=== PATIENT | female | born 1950 | race Caucasian/White ===

== ENCOUNTER 2019-03-27 12:33 | Inpatient (IN) ==
--- NOTE | 2019-03-27 13:37 | Diag Imaging Result Doc PS360 ---
EXAM: CHEST-2 VIEWS INDICATION: volume overload TECHNIQUE: 2 views COMPARISON: 12/27/2018 FINDINGS: There is slight blunting of the left costophrenic angle suggesting a likely trace effusion. The lungs are grossly clear, otherwise. There is no evidence of pneumothorax. There is stable cardiomegaly. Central vasculature is unremarkable. IMPRESSION: Likely trace effusion on the left and stable cardiomegaly. Electronically signed by Elliot Mead 03/27/2019 1:35 PM
[2019-03-27 14:14] LABS: BASO# 0.09 X1000 (0.0-0.2); BASO% 1.4 % (0.0-0.8); EOS# 0.78 X1000 (0.0-0.7); EOS% 12.4 % (0.0-10.0); HEMATOCRIT 35.5 % (37.0-47.0); HEMOGLOBIN 11.3 g/dL (12.0-16.0); LYMPH# 0.93 X1000 (1.2-3.4); LYMPH% 14.8 % (20.5-51.1); MCH 31.4 PG (27-31); MCHC 31.8 g/dL (33-37); MCV 98.6 FL (81-99); MONO% 12.8 % (1.7-9.3); MPV 10.2 FL (7.4-10.4); NEUT# 3.67 X1000 (1.4-6.5); NEUT% 58.6 % (42.2-75.2); PLT 87 X1000 (130-400); RDW 14.7 % (11.5-14.5); WBC 6.27 X1000 (4.8-10.8)
[2019-03-27 14:21] LABS: INR 1.31; PROTIME 16.5 Seconds (11.0-16.0)
--- NOTE | 2019-03-27 14:31 | EKG Report ---
Test Performed on : 03/27/2019 1:55:45 PM Test Reason : Volume overload Blood Pressure : / mmHG Vent. Rate : 088 BPM Atrial Rate : 113 BPM P-R Int : 000 ms QRS Dur : 088 ms QT Int : 380 ms P-R-T Axes : 000 017 002 degrees QTc Int : 459 ms Undetermined rhythm Anterolateral infarct (cited on or before 27-DEC-2018) Abnormal ECG When compared with ECG of 27-DEC-2018 01:11, Current undetermined rhythm precludes rhythm comparison, needs review Confirmed by Oj VALENCIA, Zeeshan Guzman ([id number]) on 03/29/2019 9:24:46 AM
[2019-03-27 14:32] LABS: ALB/GLOB RATIO 1.1; ALBUMIN 3.6 g/dL (3.5-5.0); CALCIUM 9.1 mg/dL (8.8-10.2); MAGNESIUM 1.9 mg/dL (1.5-2.7); TOTAL BILIRUBIN 2.32 mg/dL (0.20-1.00); TOTAL PROTEIN 6.9 g/dL (6.3-8.3)
[2019-03-27] MEDS ORDERED: ULTRAM PO PRN (16:01)
[2019-03-27] MEDS: LASIX IV SCH ×2 (16:45→21:35)
[2019-03-27] MEDS: INSPRA PO SCH (17:09)
--- NOTE | 2019-03-27 18:55 | HISTORY AND PHYSICAL ---
CHIEF COMPLAINT: Shortness of breath and weight gain. HISTORY OF PRESENT ILLNESS: This is a 68-year-old lady who was seen by me 4 days ago at the office. She was diagnosed as having new-onset atrial fibrillation at that time. She has been diagnosed as having cirrhosis with portal hypertension and ascites. She has been seeing Hepatology at [facility]. She denies missing any of her medications. PAST MEDICAL HISTORY: 1. 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 2. Type 2 diabetes mellitus. 3. Hypertension. 4. Hypothyroidism. 5. Psoriasis. 6. Osteoarthritis. 7. Irritable bowel syndrome. 8. Gastroesophageal reflux disease. 9. Diverticulosis. 10. History of vascular headaches. FAMILY HISTORY: Noncontributory. SOCIAL HISTORY: The patient does not smoke tobacco products nor does she drink any alcohol. She denies using any recreational drugs. ALLERGIES: She reports to be allergic to tetracycline, neomycin and codeine, along with latex and iodinated contrast media. MEDICATIONS: Current home medications: 1. Aspirin 81 mg orally once daily. 2. Eplerenone 50 mg orally once daily. 3. Furosemide 80 mg in the morning and 40 mg in the evening. 4. Lactulose 30 mL orally once daily. 5. Levothyroxine 75 mcg orally once daily. 6. Nadolol 40 mg orally once daily. 7. Ranitidine 150 mg orally twice daily. 8. Tramadol 50 mg orally twice daily as needed for arthritis pain. REVIEW OF SYSTEMS: A full 14-point review of systems was obtained that was pretty much the same as already has been explained in the HPI. PHYSICAL EXAMINATION: VITAL SIGNS: Temperature 98 degrees, pulse 88 per minute, respiratory rate 20 per minute, blood pressure 143/77, pulse oximetry 100% on room air. GENERAL: The patient is alert and oriented x3. She is minimally dyspneic but is otherwise not in any acute distress. HEENT: Within normal limits. NECK: Supple, without any thyromegaly. LYMPHATICS: No lymphadenopathy noted in the neck region. CHEST: The chest wall is nontender. CARDIOVASCULAR: First and second heart sounds are audible without any murmurs or gallops. Irregularly irregular rhythm is present. RESPIRATORY: Bilateral lung air entry is moderately decreased, but there are no rales or rhonchi present on auscultation. GASTROINTESTINAL: Abdomen is significantly distended. It is nontender on palpation, and normal bowel sounds are present. No viscera were palpable. NEUROLOGIC: No focal deficits are present. INTEGUMENTARY: Skin has a psoriatic rash under the breasts and on extremities. MUSCULOSKELETAL: No deformities are present. GENITOURINARY: Deferred. LABORATORY DATA: CBC shows WBC count of 6.27, hemoglobin 11.3, hematocrit 35.5, and platelet count of 87,000. I have reviewed her recent labs, and her platelet counts have been in the same region throughout. Comprehensive metabolic panel showed glucose level of 188, BUN 27, creatinine 1.0 and alkaline phosphate 109, with total bilirubin of 2.32. The rest of the comprehensive metabolic panel was nondiagnostic. ProBNP was elevated at 1776. PT was slightly elevated at 16.5 with INR of 1.31. DIAGNOSTIC DATA: Chest x-ray obtained this afternoon showed trace effusion on the left with cardiomegaly. No infiltrates were seen. ECG obtained this afternoon showed atrial fibrillation with a rate of 88 beats per minute. No acute ischemic abnormalities were seen. IMPRESSION: 1. Dyspnea with severe ascites secondary to portal hypertension and liver cirrhosis that is secondary to nonalcoholic steatohepatitis. 2. Thrombocytopenia secondary to cirrhosis 3. New-onset atrial fibrillation. 4. Type 2 diabetes mellitus. 5. Hypertension. 6. Hypothyroidism. PLAN: The patient will be admitted to the medical floor and will be initiated on IV furosemide 60 mg twice daily along with eplerenone 50 mg orally once daily. We will continue with nadolol 40 mg orally once daily along with aspirin 81 mg daily, levothyroxine 75 mcg once daily and lactulose 30 mL orally once daily. She is currently having an echocardiogram done to evaluate cardiac function and structure, and will be followed by Dr. Darrion Fraire from the Cardiology service. I am also going to obtain GI consultation to assist us in treating her severe ascites. We might have to get ultrasound-guided paracentesis in case she does not respond to this management. We will keep strict intake and output, and keep her on healthy-heart diet. Further recommendations will be as per hospital course. cc: Julio C Gutierrez MD [facility] CENTERMarco Antonio
[2019-03-27] MEDS: TEMOVATE 0.05% CREAM TOP SCH (21:35)
[2019-03-27] MEDS: HUMALOG SUBQ SCH (21:35)
[2019-03-28 06:03] LABS: BASO# 0.05 X1000 (0.0-0.2); BASO% 0.9 % (0.0-0.8); EOS# 0.79 X1000 (0.0-0.7); EOS% 14.8 % (0.0-10.0); HEMATOCRIT 33.7 % (37.0-47.0); HEMOGLOBIN 10.5 g/dL (12.0-16.0); LYMPH# 0.78 X1000 (1.2-3.4); LYMPH% 14.6 % (20.5-51.1); MCH 30.2 PG (27-31); MCHC 31.2 g/dL (33-37); MCV 96.8 FL (81-99); MONO# 0.65 X1000 (0.11-0.59); MONO% 12.2 % (1.7-9.3); MPV 10.3 FL (7.4-10.4); NEUT# 3.06 X1000 (1.4-6.5); NEUT% 57.5 % (42.2-75.2); PLT 95 X1000 (130-400); RBC 3.48 XMIL (4.2-5.4); RDW 14.6 % (11.5-14.5); WBC 5.33 X1000 (4.8-10.8)
[2019-03-28 06:19] LABS: CALCIUM 9.6 mg/dL (8.8-10.2); MAGNESIUM 1.9 mg/dL (1.5-2.7); POTASSIUM 3.5 mmol/L (3.5-5.1)
[2019-03-28] MEDS: HUMALOG SUBQ SCH ×4 (06:19→20:06)
[2019-03-28] MEDS: LACTULOSE PO SCH (08:29)
[2019-03-28] MEDS: SYNTHROID PO SCH (08:29)
[2019-03-28] MEDS: INSPRA PO SCH (08:29)
[2019-03-28] MEDS: ASPIRIN PO SCH (08:29)
[2019-03-28] MEDS: LASIX IV SCH ×2 (08:29→16:19)
[2019-03-28] MEDS ORDERED: ALDACTONE PO SCH (09:00)
[2019-03-28] MEDS: TEMOVATE 0.05% CREAM TOP SCH ×2 (11:12→20:06)
[2019-03-28] MEDS: CORGARD PO SCH (11:49)
[2019-03-28] MEDS ORDERED: POTASSIUM CHLORIDE 20% LIQUID PO ONE (12:18)
--- NOTE | 2019-03-28 12:28 | PROGRESS NOTE ---
DATE: 03/28/2019 SUBJECTIVE: The patient says she is feeling a little bit better. She can feel her heart beat. I was under the impression that this was new onset atrial fibrillation but she says she has had this off and on for a little bit longer period of time but apparently she was in a regular rhythm and then went back into atrial fibrillation. She also has a history of portal hypertension with ascites and nonalcoholic hepatosteatosis. She has type 2 diabetes, hypertension, hypothyroidism, psoriasis, osteoarthritis, irritable bowel syndrome. OBJECTIVE: Vital signs: Blood pressure 116/66, respirations 17, pulse 91 and regular. Telemetry station reported 102 heart rate at that time that was irregularly irregular and she has been atrial fibrillation since she has been in the hospital. Temperature 97.6 degrees Fahrenheit. Oxygen saturation is 97% on room air. HEENT: She is normocephalic. EOMS intact. PERRLA. Throat clear. Lungs: Sound clear to auscultation and percussion without rhonchi, rales, or wheezes. Heart: Irregularly irregular without murmurs, gallops, friction rubs. Abdomen: Soft. Active bowel sounds. No organomegaly or tenderness. Does have ascites. Neurological: Intact grossly. LABORATORY DATA: White count is 5330, hemoglobin 10.5, she does have anemia as well, hematocrit 33.7. Electrolytes are essentially stable. Blood sugar 117. Her proBNP was 1800. ASSESSMENT: 1. Nonalcoholic hepatosteatosis with now cirrhosis and ascites. 2. Atrial fibrillation. 3. Morbid obesity. 4. Ascites. PLAN: We will continue care. cc: MD Julio C Cain Jr, MD
--- NOTE | 2019-03-28 14:58 | ECHO REPORT ---
ORDER DATE: 03/27/2019 INDICATION: Volume overload. FINDINGS: 1. The right atrium is likely severely enlarged at 4.9 cm. 2. Moderate tricuspid regurgitation. RV systolic pressure of 59 suggesting pulmonary hypertension. 3. Normal RV size and systolic function. 4. Mild pulmonic insufficiency. 5. Severe left atrial enlargement with a volume index of 56. 6. No mitral valve prolapse. Mild mitral regurgitation. Likely moderate mitral stenosis with a peak gradient of 17, mean of 5.6. Again, mild mitral regurgitation. 7. Normal LV size, end-diastolic dimension of 5.3 cm. Normal wall thicknesses with a posterior and interventricular septal wall thickness of 1.0 and 1.1 cm respectively. Normal LV systolic function with a calculated ejection fraction of 64%. 8. The aortic valve is sclerotic. It does not appear to be stenotic based on 2-dimensional imaging, although there does appear to be a peak and mean gradient of 19 and 10. No insufficiency. 9. The aorta appears normal in visualized segments. 10. No pericardial effusion is identified. 11. Patient appears to be in atrial fibrillation. cc: MD Julio C Padilla MD
--- NOTE | 2019-03-28 15:39 | CARDIOLOGY PROGRESS NOTE ---
DATE: 03/28/2019 SUBJECTIVE: Ms. Reilly reports continued edema, but she has had adequate urine output. She otherwise has no complaints. PHYSICAL EXAMINATION: vital signs: She is afebrile. Heart rate 91, blood pressure 116/66. Her weight is 282 pounds with an admit weight of 286 pounds. Her I's and O's are -1400 mL for the course of the hospitalization. General: She is in no acute distress. Cardiovascular: She sounds to be in a regular rate and rhythm. She has no murmur. She has no S3. She has no lower extremity edema. Chest: Clear to auscultation bilaterally. She has no increased work of breathing. Abdomen: Soft, nontender. PERTINENT DATA: Sodium 142, potassium 3.5. Her BUN is 26, creatinine is 1, which is stable. Her proBNP is 1800, which is essentially unchanged from yesterday. ASSESSMENT: Ms. Reilly is a 68-year-old female who presented with complaints of edema to the office and a roughly 50-pound weight gain. PLAN: We will continue with diuretics. She is on eplerenone and seems to be doing well. I have increased her diuretic dose slightly to 80 IV b.i.d., checking laboratories in the morning. Her potassium is 3.5. I will give her 40 mEq of p.o. potassium today. cc: MD Julio C Padilla MD
--- NOTE | 2019-03-28 16:37 | GASTROENTEROLOGY CONSULTATION ---
DATE: 03/28/2019 HISTORY: Ms. Reilly was admitted to the hospital with complaints of abdominal distention and shortness of breath. She sees Dr. Bain and he has been following her for her liver disease as well as other GI issues. In fact, she had EGD and colonoscopy about a year ago. I do not have the report and not sure whether she had varices or not. She has carries a diagnosis of nonalcoholic steatohepatitis as well as cirrhosis secondary to fatty liver disease and has cirrhosis with portal hypertension now. She follows a csr at [facility]. She is also seeing Dr. Ayers for hematological issues and has seen . [*]surgeon at [facility] for cholelithiasis. Apparently, patient was seen by Dr. Fraire for shortness of breath and during evaluation she was found to have severe anasarca and ascites. She was admitted to hospital for further evaluation and treatment. The patient tells me that she has been following her dietary restriction of 2 g salt diet and has been taking her medication, but apparently she did not have good diuresis with the current medication and she started to gain weight. As her weight when up she started having issues with shortness of breath. However, she denied any fever or chills. She has occasional headache, but she carries a diagnosis of vascular headaches. She denies any cough, sputum, hemoptysis. She has had some shortness of breath on exertion as well as shortness of breath on exertion and irregular heartbeat. She carries a diagnosis of chronic atrial fibrillation. She reports no chest pain. She denies any dysuria or hematuria. She has had a good bit of urinary output since she was admitted to hospital and was started on IV Lasix. She has not had any abdominal pain, abdominal cramps. She denies any melena or bright red blood per rectum. She takes lactulose and has had good results. PAST MEDICAL HISTORY: 1. Decompensated cirrhosis secondary to nonalcoholic fatty liver disease and cirrhosis with portal hypertension. 2. Ascites and anasarca secondary to portal hypertension secondary to cirrhosis of the liver. 3. Gastroesophageal reflux disease, stable. 4. Diabetes. 5. Hypertension. 6. Chronic atrial fibrillation. 7. History of hypothyroidism. 8. Psoriasis. PAST SURGICAL HISTORY: 1. Hysterectomy. 2. Appendectomy. 3. Tonsillectomy. MEDICATIONS: Prior to hospitalization, she was on aspirin, Ultram, Corgard, Synthroid, Generlac, Lasix, Pepcid, Eplerenone. ALLERGIES: Claims to be allergic to codeine, latex, tetracycline and IV dye. SOCIAL HISTORY: She is single, retired from [employer]. Does not smoke now. Does not drink. Used to drink socially. Does not use illicit drugs. FAMILY HISTORY: Noncontributory. REVIEW OF SYSTEMS: As per HPI as above. PHYSICAL EXAMINATION: General: On examination very pleasant white female, overweight. She is lying in bed. She is conscious, alert, appears in no distress. Vital Signs: Temperature 97.6 degrees, pulse 91 per minute, breathing 17, blood pressure was 116/66. HEENT: Head is atraumatic normocephalic. Eyes: Conjunctiva is normal. Sclerae anicteric. Nares are patent. No discharge. Mouth was moist. Throat is normal. Neck: Supple, no lymphadenopathy or thyromegaly. Chest: Bilaterally symmetrical. It is moving with respirations. Breath sounds audible bilaterally. No rhonchi or crepitations could be heard. Heart: Sounds audible. No murmur could be appreciated. Abdomen: Obese. She has got subcutaneous edema mostly involving the left side of the abdomen. However, no mass or visceromegaly would be appreciated. Could not appreciate ascites because of her obesity. Abdomen otherwise soft, nontender. Bowel sounds audible. Extremities: 1+ pitting edema noted bilaterally in lower extremities. 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 No sensory or motor deficit. No asterixis or flapping tremor noted. LABORATORIES: Reviewed which showed WBC of is 5.33, hemoglobin 10.5, hematocrit 33.7, MCV 96.8, platelets were 95. PT yesterday was 16.5, INR 1.31. Sodium 142, potassium 3.5, chloride 100, bicarb 31, BUN is 26, creatinine 1.0, glucose 117, total bilirubin 2.32, AST 25, ALT 13, alkaline phosphatase 109. IMPRESSION/PLAN: This is a 68-year-old white female who has presented with abdominal distention and generalized edema associated with some shortness of breath. She has retained fluid and gained weight despite being on diuretics and following with 2 g salt diet. However, she has responded very well to diuresis since she was started on IV Lasix. She has decompensated cirrhosis with portal hypertension. Her meld score at admission was 13. At this point, there is no not much to add from GI point of view. I would continue her on diuretics, continue 2 g salt diet and continue lactulose and will follow depending on her diuresis. I think she may do fine without paracentesis. I do not think she needs a diagnostic paracentesis at this point. Therapeutic paracentesis will be reserved if she does not respond to diuretics, and continues to have respiratory issues. She does not seem to have evidence of encephalopathy now. I will continue to follow up till Saturday when Dr. Bain will pick her up for further continuation of care as he knows her very well. cc: MD Julio C Meyer MD
[2019-03-28] MEDS ORDERED: LASIX IV SCH (21:00)
[2019-03-29 07:01] LABS: AGAP 13; BUN 26 mg/dL (8-22); CALCIUM 9.4 mg/dL (8.8-10.2); CHLORIDE 101 mmol/L (98-107); COSMO 290; CREATININE 0.9 mg/dL (0.5-0.9); ESTIMATED GFR > 60; GLUCOSE 129 mg/dL (70-104); MAGNESIUM 1.7 mg/dL (1.5-2.7); POTASSIUM 4.2 mmol/L (3.5-5.1); SODIUM 142 mmol/L (136-145); TCO2 28 mmol/L (25-35)
[2019-03-29] MEDS: HUMALOG SUBQ SCH ×4 (07:26→20:38)
[2019-03-29] MEDS: LASIX IV SCH ×3 (07:28→17:07)
[2019-03-29] MEDS: SYNTHROID PO SCH ×2 (07:28→08:19)
[2019-03-29] MEDS: ASPIRIN PO SCH ×2 (07:28→08:17)
[2019-03-29] MEDS: CORGARD PO SCH ×2 (07:28→08:17)
[2019-03-29] MEDS: LACTULOSE PO SCH ×2 (07:29→08:18)
[2019-03-29] MEDS: INSPRA PO SCH (08:18)
[2019-03-29] MEDS ORDERED: PATIENT'S OWN MED PO SCH (09:00)
[2019-03-29] MEDS: TEMOVATE 0.05% CREAM TOP SCH ×2 (09:14→20:39)
[2019-03-29] MEDS ORDERED: MAGNESIUM SULFATE 2 GM/S.W.I. 2 GM/50 ML IVPB IV ONE (10:53)
--- NOTE | 2019-03-29 12:56 | PROGRESS NOTE ---
DATE: 03/29/2019 SUBJECTIVE: The patient comes in with ascites and nonalcoholic hepatic steatosis with cirrhosis. She is feeling a little bit better. We will try to diurese off the ascites. At this time, GI did not think she warranted a paracentesis but would try diuretics first. OBJECTIVE: Blood pressure is 128/66, respirations 17, pulse 78, temperature 97.9 degrees Fahrenheit. HEENT: She is normocephalic. EOMs intact. PERRLA. Throat clear. Lungs: Clear to auscultation and percussion without rhonchi, rales, or wheezes. Heart: A little irregular without murmurs, gallops, or friction rubs. Abdomen: Soft. The patient is morbidly obese. Has some ascites. Neurological Examination: Intact grossly. No signs of encephalopathy. ASSESSMENT: 1. Nonalcoholic hepatic steatosis with cirrhosis and ascites. 2. Atrial fibrillation. 3. Morbid obesity. PLAN: Continue to try to diurese. cc: MD Julio C Cain Jr, MD
--- NOTE | 2019-03-29 13:58 | GASTROENTEROLOGY PROGRESS NOTE ---
DATE: 03/29/2019 SUBJECTIVE: The patient was awake and alert. No acute distress. She was sitting up in a chair. She has had good diuresis from increased diuretics. Since admission, she has lost 10 pounds after diuretics. She denies shortness of breath today. OBJECTIVE: Vital Signs: Temperature 98.0 degrees, pulse 88, respirations 20, blood pressure 143/77. General: The patient is awake and alert. No acute distress. Abdomen: Soft. Positive bowel sounds. Obese. Laboratory: Hematology: WBC 5.33, hemoglobin 10.5, hematocrit 33.7, MCV 96.8. Chemistry: Sodium 142, potassium 4.2, chloride 101, CO2 of 28, BUN 26, creatinine 0.9, glucose 129. ASSESSMENT AND PLAN: 1. Decompensated cirrhosis related to nonalcoholic fatty liver disease. Continue diuretics. 2. Atrial fibrillation. Continue current medications. 3. Ascites has improved after diuretics. PLAN: Continue current management. Continue diuretics. Patient has had a 10 pound weight loss since admission after increased diuretics. The patient normally follows with Dr. Bain. We will notify him of her admission tomorrow. Further plans to be made according to her progress. I have discussed this case with Dr. Calderon. Dictated by HENNY Cabrera for Santiago Calderon MD cc: HENNY Dorsey MD Adnan A. Seljuki, MD
--- NOTE | 2019-03-29 15:01 | CARDIOLOGY PROGRESS NOTE ---
DATE: 03/29/2019 SUBJECTIVE: Ms. Reilly feels a little bit better today. She still feels quite edematous. She has no other complaints though presently. PHYSICAL EXAMINATION: Afebrile, heart rate of 78, blood pressure 128/66. Her weight is 276 pounds which is down from 286 on presentation. Her Is and Os are negative a total of 3.1 L over the course of the hospitalization. She was only negative a total of 1 L yesterday though. Generally, she is in no acute distress. Cardiovascular: She sounds to be in an irregularly irregular rhythm, consistent with atrial fibrillation. She has no murmurs. She has no S3. She has marked bilateral lower extremity edema. Her chest exam is clear bilaterally. She has no increased work of breathing. Her abdomen is soft, nontender. PERTINENT DATA: Her sodium is 142, potassium is 4.2, BUN 26, creatinine 0.9. Her magnesium level is 1.7. ASSESSMENT: Ms. Reilly is a 68-year-old female with cirrhosis who presented markedly volume overloaded. PLAN: I will increase her diuretics to t.i.d. with the first dose of Lasix at 5 a.m. per her request. We will recheck laboratories in the morning. I will replete her magnesium today. cc: MD Julio C Padilla MD
[2019-03-30] MEDS: LASIX IV SCH ×3 (04:40→17:07)
[2019-03-30] MEDS: HUMALOG SUBQ SCH ×5 (06:16→21:02)
[2019-03-30 07:16] LABS: CALCIUM 9.3 mg/dL (8.8-10.2); POTASSIUM 3.7 mmol/L (3.5-5.1)
--- NOTE | 2019-03-30 08:20 | PROGRESS NOTE ---
DATE: 03/30/2019 SUBJECTIVE: Patient denies having any acute complaints this morning and feels well. OBJECTIVE: Vital Signs: Temperature 97.8 degrees, pulse 87 per minute, respiratory rate 17 per minute, blood pressure 131/51, pulse oximetry 97% on room air. General: Patient is alert and oriented x3. She does not appear to be in any acute distress. Cardiovascular System: First and second heart sounds are audible without any murmurs or gallops. Respiratory System: No respiratory distress noted. Bilateral lung air entry is moderately decreased, but there are no rales or rhonchi present on auscultation. Gastrointestinal: Patient is obese. Abdomen: Slightly distended secondary to ascites although it appears to be much softer and improved as compared to 2 days ago. It is nontender on palpation and normal bowel sounds are present. DIAGNOSTIC DATA: Basic metabolic panel done this morning is nondiagnostic. BUN was found to be 24 and creatinine 1.0. Glucose levels were found to be 142. She has lost 12 pounds since admission with previous 24 hour negative balance of 1032 mL. IMPRESSION: 1. Severe ascites secondary to portal hypertension and liver cirrhosis secondary to nonalcoholic steatohepatitis. 2. Thrombocytopenia secondary to cirrhosis. 3. Type 2 diabetes mellitus. 4. New onset atrial fibrillation with controlled ventricular response. 5. Hypertension. 6. Hypothyroidism. PLAN: The patient will continue to receive IV furosemide, and although she was put on eplerenone 50 mg a day, but that is not available at the hospital. Therefore, I am going to switch her to spironolactone 100 mg orally once daily. She will continue with the rest of the supportive care. She is currently followed by Dr. Darrion Fraire from the cardiology service, and from Gastroenterology as well. Dr. Calderon was on-call, and he saw the patient over the weekend, but Dr. Bain will see her today since he has done some workup on her in the past. She can probably be discharged in the 1-2 days if continues to improve. cc: Julio C Gutierrez MD [facility] SYSTEMMarco Antonio
[2019-03-30] MEDS: ALDACTONE PO SCH (10:03)
[2019-03-30] MEDS: TEMOVATE 0.05% CREAM TOP SCH ×2 (10:04→21:02)
[2019-03-30] MEDS: CORGARD PO SCH (10:04)
[2019-03-30] MEDS: SYNTHROID PO SCH (10:04)
[2019-03-30] MEDS: LACTULOSE PO SCH (10:04)
[2019-03-30] MEDS: ASPIRIN PO SCH (10:04)
[2019-03-30] MEDS: PROTONIX IV SCH (11:52)
[2019-03-30] MEDS: CENTRUM SILVER PO SCH (11:53)
[2019-03-30] MEDS: SODIUM CHLORIDE 0.9% INJ SCH (11:53)
--- NOTE | 2019-03-30 12:55 | GASTROENTEROLOGY PROGRESS NOTE ---
DATE: 03/30/2019 ATTENDING PHYSICIAN: Dr. Gutierrez. SUBJECTIVE: Patient is resting in the chair. She had some nosebleed today. She was able to eat her meal well. She had her last bowel movement yesterday. She denied any vomiting blood or passing blood in the stools. She denies any fevers, rigors, or chills. OBJECTIVE: Vital Signs: Temperature 97.8 degrees, pulse rate of 77, respiratory rate of 19, blood pressure 140/76, saturating 94 percent on room air. Body weight of 274 pounds and 3.2 ounces. BMI of 47.8 kg/m2. General Appearance: The patient is morbidly obese. Lying in bed, in no acute distress. HEENT: Positive pallor. Mild icterus. Pupils equal, reactive to light. Neck: Supple. Abdomen: Morbidly obese. Positive anasarca. No guarding or rebound. Extremities: Bilateral lower extremity edema noted. Neurological: She is alert, awake, oriented x3. LABS: Her last labs from today, sodium 141, potassium 3.7, chloride 99, bicarb 29, anion gap 13, BUN of 24, creatinine 1, glucose of 132, calcium 9.3. Total bilirubin is 2.32, AST 25, ALT 13, alkaline phosphatase 109, total protein is 6.9, albumin of 3.6. Her hemoglobin and hematocrit on 03/28/2019 were 10.5 and 33.7, white count of 5.3, platelet count of 95,000. IMPRESSION AND PLAN: 1. Liver cirrhosis secondary to nonalcoholic steatohepatitis complicated with portal hypertension, ascites, anasarca. 2. Thrombocytopenia. 3. Type 2 diabetes. 4. Atrial fibrillation, being followed by Dr. Darrion Fraire. 5. Hypertension. 6. Hypothyroidism. 7. Morbid obesity. 8. Anemia. 9. Elevated liver enzymes and mild jaundice. 10. Coagulopathy with INR of 1.3. RECOMMENDATIONS: 1. We will continue the patient on IV diuretics. She will continue on spironolactone 100 mg once daily. She will continue a low-sodium diet, less than 2 g per 24 hours. The patient was strongly encouraged to restrict her fluids, keep fluids less than 1.5 L in 24 hours. The patient was counseled to lose weight. She is currently being followed by Dr. Darrion Fraire from cardiology for management of atrial fibrillation. We will continue to watch her blood counts, platelet counts, and her liver enzymes. She will continue on nadolol 40 mg once daily as she had a prior history of esophageal varices. She had EGD and colonoscopy done by Dr. Bain more than a year ago and she had esophageal stricture at that time but did not show esophageal varices at that time. She will continue on Synthroid for her hypothyroidism. We will keep her on lactulose once daily. Yesterday, she had 3 bowel movements while being on lactulose. We need to watch her BUN and creatinine closely as she has been on high doses of Lasix. She also has a history of congestive heart failure in the past as well. She follows with [facility]. We will continue to follow her during the hospital course. She will follow up with Dr. Bain in 1 week after discharge. She will follow with the [facility] [place] as scheduled. 2. I will start her on a multivitamin once daily. She will continue on sliding scale insulin for diabetes control. 3. The above plans were discussed with the patient and all questions were answered. Please call us with any further questions. cc: MD Julio C Ba MD [facility]
[2019-03-30] MEDS ORDERED: AYR NASAL SPRAY NAS PRN (15:11)
--- NOTE | 2019-03-30 18:05 | CARDIOLOGY PROGRESS NOTE ---
DATE: 03/30/2019 SUBJECTIVE: Patient has no complaints. She does report some continued issues with lower extremity edema, but this seems to be improving slightly. OBJECTIVE: Vital signs: She is afebrile. Heart rate 77. Her blood pressure is 147/76. Her I's and O's have been a total negative of 4.3 L with a weight drop over that time period from 286 to 274. Generally: She is in no acute distress. Cardiovascular: She is in an irregularly irregular rhythm. She has no murmurs. She has no S3. She has marked bilateral lower extremity edema. They are warm and well perfused. Chest: Exam is clear bilaterally. She has no increased work of breathing. Abdomen: Nontender. PERTINENT DATA: Her sodium is 141, potassium 3.7, BUN 24, creatinine is 1.0 which is roughly stable. ASSESSMENT: Ms. Reilly is a 68-year-old female with cirrhosis and volume overload. PLAN: Laboratories have been ordered for the morning. The patient continues on diuretics in a t.i.d. fashion. She is a currently on oral Lasix 80 mg IV t.i.d. along with 100 mg of spironolactone. Again, she is approximately 4.5 L negative over the admission. cc: MD Julio C Padilla MD
[2019-03-30] MEDS: ELIQUIS PO SCH (21:01)
[2019-03-31] MEDS: LASIX IV SCH ×3 (06:27→17:23)
[2019-03-31] MEDS: HUMALOG SUBQ SCH ×4 (06:33→20:40)
[2019-03-31 06:45] LABS: CALCIUM 9.6 mg/dL (8.8-10.2); MAGNESIUM 1.9 mg/dL (1.5-2.7); POTASSIUM 3.9 mmol/L (3.5-5.1)
[2019-03-31] MEDS: SYNTHROID PO SCH (06:45)
--- NOTE | 2019-03-31 07:23 | EKG Report ---
Test Performed on : 03/31/2019 06:44:36 AM Test Reason : afib Blood Pressure : / mmHG Vent. Rate : 075 BPM Atrial Rate : 066 BPM P-R Int : 000 ms QRS Dur : 088 ms QT Int : 412 ms P-R-T Axes : 000 005 001 degrees QTc Int : 460 ms Atrial fibrillation. Abnormal ECG When compared with ECG of 27-MAR-2019 13:55, Previous ECG has undetermined rhythm, needs review Confirmed by Temo Rivera MD ([id number]) on 04/01/2019 12:14:48 PM
[2019-03-31] MEDS: CENTRUM SILVER PO SCH (09:22)
[2019-03-31] MEDS: CORGARD PO SCH (09:22)
[2019-03-31] MEDS: ALDACTONE PO SCH (09:22)
[2019-03-31] MEDS: ELIQUIS PO SCH (09:22)
[2019-03-31] MEDS: LACTULOSE PO SCH (09:23)
[2019-03-31] MEDS: TEMOVATE 0.05% CREAM TOP SCH ×2 (09:23→20:40)
[2019-03-31] MEDS: PROTONIX IV SCH (11:43)
[2019-03-31] MEDS: SODIUM CHLORIDE 0.9% INJ SCH (11:43)
--- NOTE | 2019-03-31 13:02 | PROGRESS NOTE ---
DATE: 03/31/2019 SUBJECTIVE: Patient denies having any acute complaints this morning and feels better. She states that her breathing is getting better. OBJECTIVE: Vital Signs: Temperature 97.7 degrees, pulse 87 per minute, respiratory rate 17 per minute, blood pressure 151/72, pulse oximetry 96% on room air. General: Patient is alert and oriented x3. She does not appear to be in any acute distress. Cardiovascular System: First and second heart sounds are audible with irregularly irregular rhythm present. Respiratory System: Bilateral lung air entry is moderately decreased without any rales or rhonchi present on auscultation. Gastrointestinal System: Patient is morbidly obese. Abdomen is slightly distended but it is soft and nontender on palpation. Normal bowel sounds are present. Diagnostic Data: Basic metabolic panel done this morning is nondiagnostic. Magnesium levels were also found to be normal at 1.9. IMPRESSION: 1. Severe ascites causing her to have dyspnea. This is secondary to portal hypertension and liver cirrhosis secondary to nonalcoholic steatohepatitis. 2. Thrombocytopenia secondary to cirrhosis. 3. Type 2 diabetes mellitus. 4. New onset atrial fibrillation with controlled ventricular response. 5. Hypertension. 6. Hypothyroidism. PLAN: The patient will continue to receive IV furosemide, along with the spironolactone and fluid restriction. She is currently being followed by cardiology and gastroenterology. She probably will stay here until she improves further. She has lost at least 5.5 L of fluid since admission and has dropped 14 pounds of weight on the scale. cc: Julio C Gutierrez MD [facility]TDD
--- NOTE | 2019-03-31 13:29 | CARDIOLOGY PROGRESS NOTE ---
DATE: 03/31/2019 SUBJECTIVE: The patient reports she is doing well today. She has no present complaints. She reports good diuresis in the interim. OBJECTIVE: Vital Signs: She is afebrile, heart rate 72, blood pressure 129/70. Her weight continues to drop. Current weight 272. Presenting weight 286. I's and O's: She is cumulatively negative 5.7 L. General: No acute distress. Cardiovascular: She is in a regular rate and rhythm. She has no murmurs. She has no S3. Extremities: She has marked bilateral lower extremity edema. Chest: Sounds clear bilaterally. She has no increased work of breathing. Abdomen: Soft, nontender. PERTINENT DATA: BUN and creatinine are 27 and 1.0, with a magnesium level of 1.9. Those are relatively stable. Her proBNP is 1498. ASSESSMENT: Ms. Reilly is a 68-year-old female with cirrhosis, who presented markedly volume overloaded. PLAN: I will try giving her a one-time dose of 2.5 mg of metolazone before her p.m. dose of Lasix today. She had a urine output of 3.9 L yesterday, with a net -2.5. We will recheck laboratories in the morning. cc: MD Julio C Padilla MD
--- NOTE | 2019-03-31 14:33 | GASTROENTEROLOGY PROGRESS NOTE ---
DATE: 03/31/2019 SUBJECTIVE: Ms. Reilly is a 68-year-old female, sitting in the recliner. The patient did complain that she had some sinus problems and sometimes she has a nose bleed, but today she mentioned that she had some blood in her mouth, which she is not sure whether it is coming from her nose or is coming out from the stomach. She did have 1 bowel movement today. The patient is currently on a heart healthy diet, and is able to tolerate her diet well. Patient does have some lower extremity edema for which she is receiving Lasix. OBJECTIVE: Vital Signs: Temperature 97.7 degrees, pulse 72, respirations 18, blood pressure 129/70, oxygen saturation 99% on room air. Weight: The patient's weight is 217 pounds. BMI is 47.5 kg/m sq. General: The patient is morbidly obese. Alert and oriented x3 and in no acute distress. HEENT: Pale conjunctivae. No icterus. PERRL. Neck: Supple. Lungs: Clear to auscultation. Cardiovascular: Regular rate and rhythm. Abdomen: Morbidly obese. Hypoactive bowel sounds heard in all 4 quadrants. Extremities: No clubbing, no cynosis, Edema in the lower extremities. Neurologic: Alert, oriented x3. LABS: WBCs of 5.33, RBCs 3.48, hemoglobin is 10.5, hematocrit is 33.7, platelet count is 95,000. Sodium 140, potassium 3.9, chloride 97, carbon dioxide 29, anion gap 14, BUN 27, creatinine 1. Glucose is 128, calcium 9.6, magnesium 1.9. IMPRESSION AND PLAN: Liver cirrhosis Ascites Type II diabetes Atrial fibrillation Anemia Elevated LFT's PLAN: Ms. Reilly is a 68-year-old female with a history liver cirrhosis. The patient is currently on Lasix 80 mg 3 times for her edema. She is on Protonix 40 mg intravenously daily. The patient is receiving lactulose 30 mL PO. The patient's hemoglobin and hematocrit today are 10.5 and 33.7. It has started to trend downwards. The patient did mention about some blood in her mouth, but not sure whether it is coming from the nose or the stomach. We plan to do an EGD tomorrow to rule out the cause of the bleeding. We will discuss the risks, benefits, and alternatives of the procedure to the patient. Further plan of care will be based on the EGD findings. This plan was discussed with Dr. Gallo. Please call us with any further questions. Dictated by HENNY Pérez for Owen Gallo MD cc: Julio C Gutierrez MD [facility]
[2019-03-31] MEDS ORDERED: ZAROXOLYN PO ONE (16:30)
[2019-04-01] MEDS: LASIX IV SCH ×3 (04:15→16:53)
[2019-04-01] MEDS: HUMALOG SUBQ SCH ×4 (06:00→20:26)
[2019-04-01 07:25] LABS: ALBUMIN 3.9 g/dL (3.5-5.0); CREATININE 1.1 mg/dL (0.5-0.9); MAGNESIUM 1.9 mg/dL (1.5-2.7); POTASSIUM 3.7 mmol/L (3.5-5.1); TOTAL BILIRUBIN 2.68 mg/dL (0.20-1.00); TOTAL PROTEIN 7.8 g/dL (6.3-8.3)
[2019-04-01] MEDS ORDERED: FENTANYL ONE (07:52)
[2019-04-01] MEDS ORDERED: DIPRIVAN 1% ONE (07:52)
--- NOTE | 2019-04-01 07:57 | PROGRESS NOTE ---
DATE: 04/01/2019 SUBJECTIVE: Patient feels good this morning and states that her orthopnea is slowly and gradually getting better. She also states that her leg swelling is improving. She did report an episode of blood in the back of her throat, but that has now cleared. OBJECTIVE: Vital Signs: Temperature 97.7 degrees, pulse 77 per minute, respiratory rate 15 per minute, blood pressure 125/49, pulse oximetry 97% on room air. General: Patient is alert and oriented x3. She does not appear to be in any acute distress. Cardiovascular System: First and second heart sounds are audible without any murmurs or gallops. Respiratory System: Bilateral lung air entry is moderately decreased but there are no rales or rhonchi present on auscultation. Gastrointestinal system: Abdomen is slightly distended. It is kind of firm on palpation, but no viscera are palpable and normal bowel sounds are present. LABORATORY DATA: From this morning are pending at the time of this dictation. IMPRESSION: 1. Dyspnea and orthopnea secondary to severe ascites that is secondary to cirrhosis of the liver secondary to nonalcoholic steatohepatitis. 2. Thrombocytopenia secondary to cirrhosis. 3. Upper gastrointestinal bleed. 4. Type 2 diabetes mellitus. 5. New onset atrial fibrillation. 6. Hypertension. 7. Hypothyroidism. PLAN: The patient will continue to receive IV diuretics and is currently being scheduled for having upper GI endoscopy to be done to investigate her upper GI bleed. She will continue with lactulose and spironolactone along with nadolol. She will also continue to receive lispro insulin as per sliding scale to control her glucose levels. Apixaban has been held because of the bleeding episode. Currently, she is being followed by Cardiology and Gastroenterology. cc: Julio C Gutierrez MD
--- NOTE | 2019-04-01 08:58 | ENDOSCOPY OPERATIVE NOTE ---
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 History of cirrhosis. No history of variceal bleed.. PROCEDURE PERFORMED: EGD, diagnostic MEDICATIONS: Per Anesthesia ESTIMATED BLOOD LOSS: None CONSENT: The patient understands the risks and benefits of the procedure and understands that these r isks include, but are not limited to: sedation, allergic reaction, infection, perforation and/or bleeding. Alternative means of evaluation and treatment include, among others: physical exam, x-rays, and/or surgical intervention. The patient elects to proceed with this endoscopic procedure. DESCRIPTION OF PROCEDURE: During pre-op preparation period all mechanical and medical equipment was c hecked for proper function. Hand hygiene and appropriate measures for infection prevention was taken. After the risks, benefits and alternatives of the procedure were thoroughly explained, Informed consent was verified, confirmed and timeout was successfully executed by the treatment team. The patient was anesthetized with topical anesthesia and the [id number] ([id number]) endoscope was introduced through the mouth and advanced to the second portion of the duoden um. Retroflexion was performed in the stomach and revealed no abnormalities. The gastroscope was then slowly withdraw n and removed. The patient's toleration of the procedure was excellent. ESOPHAGUS: The mucosa of the esophagus appeared normal. STOMACH: Mild portal hypertensive gastropathy was found. DUODENUM: The duodenum was normal. ADVERSE EVENTS: There were no complications. IMPRESSIONS: 1. The mucosa of the esophagus appeared normal 2. Portal hypertensive gastropathy was found 3. The duodenum was normal 4. No evidence of UGIB. Bleed was oropharyngeal RECOMMENDATIONS: Resume cardiac diet Avoid blood thinners in setting of thrombocytopenia and cirrhosis REPEAT EXAM: for EGD. Owne Gallo MD eSigned: Owen Gallo MD 04/01/2019 8:57 AM CC: CPT CODES: 79489 Upper gastrointestinal endoscopy including esophagus, stomach, and either the du odenum and/or jejunum as appropriate; diagnostic, with or without collection of specimen(s) by brushing or washing (separate procedure) ICD CODES: 537.89 Other specified disorders of stomach and duodenum 572.3 Portal hypertension The ICD and CPT codes recommended by this software are interpretations from the data that the [facility] staff has captured with the software. The verification of the translation of this report to the ICD and CPT co zach and modifiers is the sole responsibility of the health care institution and practicing physician where this report was generated. [employer] will not be held responsible for the validity of the ICD and CPT codes i ncluded on this report. [facility] assumes no liability for data contained or not contained herein. CPT is a registered tra demark of the [employer]. PATIENT NAME: Alondra Reilly MR#: [id number]
[2019-04-01 09:56] LABS: BASO# 0.03 X1000 (0.0-0.2); BASO% 0.4 % (0.0-0.8); EOS# 0.82 X1000 (0.0-0.7); EOS% 12.2 % (0.0-10.0); HEMATOCRIT 36.7 % (37.0-47.0); HEMOGLOBIN 11.5 g/dL (12.0-16.0); LYMPH# 0.81 X1000 (1.2-3.4); MCHC 31.3 g/dL (33-37); MCV 95.8 FL (81-99); MONO# 0.64 X1000 (0.11-0.59); MONO% 9.5 % (1.7-9.3); MPV 10.7 FL (7.4-10.4); NEUT# 4.44 X1000 (1.4-6.5); NEUT% 65.9 % (42.2-75.2); PLT 112 X1000 (130-400); RBC 3.83 XMIL (4.2-5.4); RDW 14.7 % (11.5-14.5); WBC 6.74 X1000 (4.8-10.8)
[2019-04-01] MEDS: ALDACTONE PO SCH (10:08)
[2019-04-01] MEDS: CENTRUM SILVER PO SCH (10:08)
[2019-04-01] MEDS: CORGARD PO SCH (10:08)
[2019-04-01] MEDS: SYNTHROID PO SCH (10:08)
[2019-04-01] MEDS: LACTULOSE PO SCH (10:08)
[2019-04-01] MEDS: TEMOVATE 0.05% CREAM TOP SCH ×2 (10:09→20:27)
[2019-04-01] MEDS ORDERED: ZAROXOLYN PO ONE (10:30)
[2019-04-01] MEDS: PROTONIX IV SCH (11:19)
--- NOTE | 2019-04-01 12:00 | CARDIOLOGY PROGRESS NOTE ---
DATE: 04/01/2019 SUBJECTIVE: Ms. Reilly underwent her EGD today. She has no complaints now. She has continued lower extremity edema that seems improved. OBJECTIVE: Vital Signs: On physical exam, she is afebrile. Heart rate is 72, blood pressure 139/78. Input and output continued to decline. Accumulative she is -8 liters. Her weight so far is down on standing scales from 286 on presentation to 260. General: No acute distress. Cardiovascular: She is in an irregularly irregular rhythm. She has no murmurs. She has no S3. She has 2+ bilateral lower extremity edema. Chest: Clear bilaterally. No increased work of breathing. Abdomen: Soft and nontender. PERTINENT DATA: Sodium 139, potassium 3.7, BUN 29, creatinine is 1.1, T-bilirubin 2.7, and her proBNP is 1188 which is down from 1498 yesterday. Magnesium level 1.9. ASSESSMENT: Ms. Reilly is a 68-year-old female with cirrhosis. PLAN: Her EGD procedure demonstrated portal hypertensive gastropathy. Duodenum was normal. Esophagus appeared normal, no obvious upper GI bleed findings. Recommendations per GI were to avoid blood thinners in the setting of portal hypertension and thrombocytopenia. We will try to continue to achieve adequate rate control and diurese the patient. Presently, she is diuresing. We are giving her 1 more dose of metolazone today. Labs ordered for the morning. cc: MD Julio C Padilla MD
[2019-04-01] MEDS: ELIQUIS PO SCH (21:12)
[2019-04-02] MEDS: LASIX IV SCH ×3 (05:43→17:50)
[2019-04-02] MEDS: SYNTHROID PO SCH ×2 (05:44→08:56)
[2019-04-02 06:12] LABS: BASO# 0.06 X1000 (0.0-0.2); BASO% 0.9 % (0.0-0.8); EOS# 0.74 X1000 (0.0-0.7); EOS% 10.5 % (0.0-10.0); HEMATOCRIT 36.8 % (37.0-47.0); HEMOGLOBIN 11.5 g/dL (12.0-16.0); LYMPH# 0.88 X1000 (1.2-3.4); LYMPH% 12.5 % (20.5-51.1); MCH 29.8 PG (27-31); MCHC 31.3 g/dL (33-37); MCV 95.3 FL (81-99); MPV 10.4 FL (7.4-10.4); NEUT# 4.64 X1000 (1.4-6.5); NEUT% 66.1 % (42.2-75.2); PLT 111 X1000 (130-400); RBC 3.86 XMIL (4.2-5.4); RDW 14.6 % (11.5-14.5); WBC 7.02 X1000 (4.8-10.8)
[2019-04-02] MEDS: HUMALOG SUBQ SCH ×4 (06:25→21:16)
[2019-04-02 06:27] LABS: CALCIUM 9.6 mg/dL (8.8-10.2); CREATININE 1.2 mg/dL (0.5-0.9); POTASSIUM 3.8 mmol/L (3.5-5.1)
[2019-04-02] MEDS: MAALOX PLUS LIQUID PO PRN (07:55)
[2019-04-02] MEDS: LACTULOSE PO SCH (08:56)
[2019-04-02] MEDS: ALDACTONE PO SCH (08:57)
[2019-04-02] MEDS: CENTRUM SILVER PO SCH (08:57)
[2019-04-02] MEDS: ELIQUIS PO SCH ×2 (08:57→21:15)
[2019-04-02] MEDS: CORGARD PO SCH (08:57)
[2019-04-02] MEDS: TEMOVATE 0.05% CREAM TOP SCH ×2 (08:59→21:17)
--- NOTE | 2019-04-02 11:22 | GASTROENTEROLOGY PROGRESS NOTE ---
DATE: 04/02/2019 SUBJECTIVE: Ms. Reilly is a 68-year-old, female resting in her recliner. The patient has denied any nausea, vomiting, or abdominal pain. Her lower extremity edema also is getting better. She has not noticed any bleeding episodes fro her nose or mouth. She is currently on a heart healthy diet and is able to tolerate her diet well. The patient has been having positive bowel movements but today, she has not had one. OBJECTIVE: Vital Signs; Temperature 97.8 degrees, pulse 76, respirations 16, blood pressure 129/47, oxygen saturation 98% on room air. The patient's weight is 252 pounds. BMI is 44.1 kg/m2. General: She is alert, oriented x3, and in no acute distress. HEENT: Pale conjunctivae. No icterus. PERRL. Neck: Supple. Lungs: Clear to auscultation. Cardiovascular: Regular rate and rhythm. Abdomen: Morbidly obese, nontender. Hypoactive bowel sounds heard in all 4 quadrants. Extremities: No clubbing, no cyanosis. Generalized edema. Neurologic: Alert and oriented x3. Laboratory Data: WBCs are 7.02, RBCs 3.86, hemoglobin is 11.5, hematocrit is 36.5, platelet count is 111,000. Sodium 138, potassium 3.8, chloride 90, carbon dioxide 33, anion gap 15, BUN 29, creatinine is 1.2, glucose 135, calcium 9.6. IMPRESSION AND PLAN: Fatty liver Cirrhosis Thrombocytopenia Obesity Atrial Fibrillation Portal hypertensive gastropathy No evidence of esophageal or gastric varices PLAN: Ms. Reilly is a 68-year-old, female with a history of liver cirrhosis secondary to TUCKER. The patient had an endoscopy done yesterday and the mucosa of the esophagus appeared normal. Portal hypertensive gastropathy was found. Duodenum was normal and there was no evidence of upper GI bleed. Her bleed was in the oropharyngeal area. The patient has been advised to avoid blood thinners in the setting of thrombocytopenia and cirrhosis. She is currently receiving nadolol 40 mg daily. The patient is also on lactulose 30 mg p.o. She is on PPIs daily, we will continue it for 90 days. The patient is receiving multivitamin for anemia. Patient can follow us up in 4 to 6 weeks as an outpatient. This plan was discussed with Dr. Cox. We will sign off for now. Please call us for any further questions or concerns. Dictated by HENNY Pérez for Barrie Cox MD cc: MD Julio C Ba MD I have seen and examined the patient myself and I agree with the above plan of care. Please call us with any questions or concerns.Follow up in clinic in 4-6 weeks. MTDD
[2019-04-02] MEDS ORDERED: MAGNESIUM SULFATE 2 GM/S.W.I. 2 GM/50 ML IVPB IV ONE (12:00)
[2019-04-02] MEDS: SODIUM CHLORIDE 0.9% INJ SCH (12:04)
[2019-04-02] MEDS: PROTONIX IV SCH (12:04)
[2019-04-02] MEDS ORDERED: ZAROXOLYN PO ONE (16:30)
[2019-04-02] MEDS ORDERED: CALMOSEPTINE OINTMENT TOP PRN (21:27)
--- NOTE | 2019-04-02 21:29 | PROGRESS NOTE ---
DATE: 04/02/2019 SUBJECTIVE: A 68-year-old white female basically admitted to the hospital on 03/27/2019 with a weight gain of 30 pounds. I am covering for Dr. Gutierrez. The patient is getting diuresis, had EGD done by Dr. Gallo, and Dr. Fraire is working on chronic atrial fibrillation. She lost 30 pounds with diuresis. REVIEW OF SYSTEMS: No complaints today. PAST MEDICAL HISTORY: Reviewed. PAST SURGICAL HISTORY: Reviewed. MEDICINES: Reviewed. ALLERGIES: Iodinated contrast media, latex and tetracycline. OBJECTIVE: Vital signs: Temperature is 98.3 degrees, pulse 93, blood pressure is 138/66, on room air 97%, weight is now 252 pounds. Input and output are -3.8 L. General: The patient is sitting out of the bed in the chair, eating breakfast, comfortable, not in respiratory distress. HEENT: Within normal limits. Neck: Supple. Cardiovascular: Irregular heart sounds, very distant. Respiratory: Bilateral air entry. Abdomen: Belly is soft, obese and some edema noted in the lower abdomen. Extremities: 1+ edema noted in both legs and psoriatic rash noted all over the legs. LABORATORY DATA: CBC: White cell count is 7.0, hematocrit 36.8, platelets 111,000. Sodium 138, potassium 3.8, BUN 29, creatinine 1.2, glucose 215. ProBNP 10,084. ASSESSMENT: 1. Cirrhosis of liver due to nonalcoholic steatohepatitis with thrombocytopenia. 2. Obesity. 3. Chronic atrial fibrillation. 4. On esophagogastroduodenoscopy, portal hypertensive gastropathy. 5. Chronic atrial fibrillation. Echocardiographic findings: Ejection fraction 64%. Pulmonary hypertension noted. 6. Psoriatic rash. 7. Chest x-ray: Cardiomegaly. PLAN OF CARE: Daily weights, fluid restrictions, low-salt diet. Currently on Aldactone 100 daily, nadolol 40 mg daily, lactulose 30 mL daily, Lasix IV t.i.d. and started on Eliquis 5 mg b.i.d. for chronic atrial fibrillation, hypothyroidism on Synthroid, GI prophylaxis with IV Protonix, psoriatic rash on the steroid cream, and we will follow up. LEVEL OF DOCUMENTATION: 30 minutes. cc: MD Julio C Lucero MD
[2019-04-03] MEDS: MAALOX PLUS LIQUID PO PRN ×2 (00:24→22:33)
[2019-04-03] MEDS: LASIX IV SCH ×3 (05:21→20:51)
[2019-04-03] MEDS: SYNTHROID PO SCH ×2 (05:21→09:18)
[2019-04-03] MEDS: HUMALOG SUBQ SCH ×4 (06:10→20:55)
[2019-04-03 07:17] LABS: CALCIUM 9.7 mg/dL (8.8-10.2); CREATININE 1.2 mg/dL (0.5-0.9); MAGNESIUM 1.9 mg/dL (1.5-2.7); POTASSIUM 3.6 mmol/L (3.5-5.1)
[2019-04-03] MEDS: CENTRUM SILVER PO SCH (09:18)
[2019-04-03] MEDS: CORGARD PO SCH (09:18)
[2019-04-03] MEDS: LACTULOSE PO SCH (09:18)
[2019-04-03] MEDS: ALDACTONE PO SCH (09:18)
[2019-04-03] MEDS: TEMOVATE 0.05% CREAM TOP SCH ×2 (09:22→20:50)
[2019-04-03] MEDS: ELIQUIS PO SCH (09:22)
[2019-04-03] MEDS: SODIUM CHLORIDE 0.9% INJ SCH (11:54)
[2019-04-03] MEDS: PROTONIX IV SCH (11:54)
[2019-04-03] MEDS ORDERED: POTASSIUM CHLORIDE 20% LIQUID PO ONE (13:19)
[2019-04-03] MEDS ORDERED: ZAROXOLYN PO ONE ×2 (16:30→20:30)
--- NOTE | 2019-04-03 20:47 | PROGRESS NOTE ---
DATE: 04/03/2019 SUBJECTIVE: The patient is getting better. Apparently, she could not tolerate Eliquis due to bleeding. She continues to have good diuresis. OBJECTIVE: Temperature is 97.8 degrees, pulse is 66, blood pressure is 146/64. Intake and output - 1.8, and weight is 244 pounds. Chest is clear. Irregular heart sounds. Belly is soft, nontender. Decreased edema in the abdomen as well as in the legs. LABORATORY: Sodium 136, potassium 3.6, BUN 36, creatinine 1.2, glucose 178. ASSESSMENT: 1. Chronic atrial fibrillation. 2. Cardiomegaly with diastolic congestive heart failure. 3. Cirrhosis of liver due to nonalcoholic steatohepatitis with pancytopenia, portal gastropathy. PLAN: The plan of care is to continue diuresis, and unable to tolerate Eliquis. Discussed the plan with lactulose, nadolol, Aldactone, Lasix, fluid restrictions and daily weights, and if she continues to improve we will discharge in the morning. LEVEL OF DOCUMENTATION: 25 minutes. cc: MD Julio C Lucero MD [facility]
--- NOTE | 2019-04-03 21:16 | CARDIOLOGY PROGRESS NOTE ---
DATE: 04/03/2019 SUBJECTIVE: Ms. Reilly reports she is doing well. She continues to diurese. She is negative a total of 18 L for the course of the hospitalization. Her weights are down from 286 on presentation to 244. OBJECTIVE: Generally she is in no acute distress. Cardiovascularly she sounds to be in an irregularly irregular rhythm. She has no murmurs. She has no S3. She has marked bilateral lower extremity edema, although it appears to be improved compared to previous. Her chest is clear bilaterally. She has no increased work of breathing. Her abdomen is soft and nontender. LABORATORY DATA: Her sodium is 136, potassium 3.6, BUN 36, creatinine is 1.2 which is roughly stable from yesterday. Her magnesium level is 1.9. Her proBNP is 918, which is down from a peak of 1800 this hospitalization. ASSESSMENT: Ms. Reilly is a 68-year-old female with cirrhosis. PLAN: I believe it would be reasonable to discharge her tomorrow. She is on Lasix 80 mg in the morning and 40 mg at night at home. I would recommend increasing that to 80 b.i.d. In addition, she was placed on spironolactone 100 mg daily. I would replace the eplerenone with that. She had a GI evaluation, and they recommended no anticoagulation given her GI bleeding history and cirrhosis. I would continue her on the nadolol. I will plan on seeing her back in the office in 2 weeks. cc: MD Julio C Padilla MD
[2019-04-04] MEDS ORDERED: ZAROXOLYN PO ONE (04:30)
[2019-04-04] MEDS: LASIX IV SCH ×3 (04:56→12:57)
[2019-04-04] MEDS: HUMALOG SUBQ SCH ×2 (06:27→12:10)
[2019-04-04 07:14] LABS: CALCIUM 9.9 mg/dL (8.8-10.2); CREATININE 1.3 mg/dL (0.5-0.9); MAGNESIUM 1.8 mg/dL (1.5-2.7)
[2019-04-04] MEDS: CENTRUM SILVER PO SCH (07:59)
[2019-04-04] MEDS: TEMOVATE 0.05% CREAM TOP SCH (07:59)
[2019-04-04] MEDS: CORGARD PO SCH (07:59)
[2019-04-04] MEDS: ALDACTONE PO SCH (07:59)
[2019-04-04] MEDS: SYNTHROID PO SCH (07:59)
[2019-04-04] MEDS: LACTULOSE PO SCH (07:59)
[2019-04-04] MEDS: PROTONIX IV SCH (12:10)
[2019-04-04 12:22] VITALS: BP 128/80
--- NOTE | 2019-04-06 04:32 | DISCHARGE SUMMARY ---
ADMISSION DATE: 03/27/2019 DISCHARGE DATE: 04/04/2019 DISCHARGING DIAGNOSES: 1. Acute diastolic congestive heart failure. 2. Chronic atrial fibrillation due to mitral stenosis 3. Cirrhosis of liver due to nonalcoholic steatohepatitis. 4. Type 2 diabetes. 5. Hypertension. 6. Hypothyroidism. 7. Thrombocytopenia due to cirrhosis. 8. Psoriatic rash. 9. Diverticulosis. 10. Acid reflux disease. CONSULTS: Dr. Gallo, Dr. Darrion Fraire. PROCEDURES: 1. EGD. Findings: No active signs of bleeding except portal gastropathy. 2. Echocardiography. Findings: LV function is 64%, pulmonary hypertension, severe left atrial enlargement, mild mitral regurgitation, moderate mitral stenosis. BRIEF HISTORY: Please see the H and P that was done by Dr. Gutierrez. In brief, she is a 68-year- old, white female who was admitted with dyspnea, new onset of atrial fibrillation, gained 40 pounds, with underlying cirrhosis due to TUCKER, and thrombocytopenia. HOSPITAL COURSE: 1. For congestive heart failure and atrial fibrillation due to mitral stenosis with left atrial enlargement and pulmonary hypertension. Echocardiography, normal LV systolic function. I believe previous thyroid function tests were normal and basically rate controlled with nadolol. Unable to tolerate Eliquis due to bleeding. Apparently, she also has moderate mitral stenosis. At some point, she needs to address this anticoagulation or further workup once her other problem is stabilized. 2. Volume overload due to a combination of CHF and cirrhosis of liver causing ascites. The patient was given IV Lasix, Aldactone, fluid restriction, daily weights. She lost 50 pounds. At the time of discharge, the patient's symptoms are much improved. Weight is 244 pounds. She was advised to take fluid restrictions and daily weights and Lasix as discussed. 3. Thrombocytopenia due to splenomegaly. 4. Hypothyroidism, on Synthroid. 5. Psoriatic rash, on steroid cream as needed. 6. The patient had EGD done. It showed portal gastropathy. She will be high risk for bleeding and other options are discussed for thromboembolism from underlying atrial fibrillation, which may be down the line, consider Maze procedure versus radiofrequency ablations. The patient is anxious to go home. At the time of discharge, her weight is 244 pounds. LABS: CBC: White cell count 7, hematocrit 36, platelets 111,000. Sodium 138, potassium 4, chloride 90, BUN 39, creatinine 1.3, glucose 200. ProBNP was 760. Total bilirubin 2.68. DISCHARGE INSTRUCTIONS: Fluid restrictions 1.5 L per day, daily weights, low- salt diet, Synthroid 75 mcg daily, aspirin 81 mg daily, nadolol 40 daily, tramadol 50 as needed, Pepcid 20 p.o. b.i.d., Lasix 80 in the morning and 40 in the evening, lactulose 30 g daily, Temovate cream to apply twice a day for rash, and Aldactone 100 mg daily. Follow up with Dr. Gutierrez and Dr. Fraire. cc: MD Julio C Lucero MD Peter Johnson, MD Michael Kelso, MD MTDD
== END 2019-04-04 14:00 | disposition home health service (06) | DRG 432 ==
LOC: EDIPHOLD 12:48 → 2N 18:30
PROVIDERS: ADMIT Internal Medicine; ATTEND Internal Medicine